=== PATIENT | male | born 2000 | race African-American/Black ===

== ENCOUNTER 2021-07-08 17:26 | Emergency (ER) | payer SELFPAY ==
[~2021-07-08] VITALS: Ht 182.9 cm; Wt 80.9 kg
[2021-07-08 18:32] VITALS: BP 140/90
== END 2021-07-08 23:30 | disposition left against medical advice (07) ==
LOC: ER 17:26
DX: M79.10 Myalgia, unspecified site (principal); R11.0 Nausea; Z53.21 Procedure and treatment not carried out due to patient leaving prior to being seen by health care provider